=== PATIENT | female | born 2000 | race Caucasian/White ===

== ENCOUNTER 2023-01-04 14:00 | Outpatient (RCR) | payer BC ==
[2022-12-24 17:09] VITALS: BP 115/64; PULSE 79; TEMP 98.3
[2022-12-28 14:23] VITALS: BP 109/72; PULSE 88; TEMP 98.9
[~2023-01-04] VITALS: Ht 175.3 cm; Wt 64.2 kg
[~2023-01-04 14:00] MED LIST: PREDNISONE10 MG PO; PROAIR HFA0.09 MG/AC IH; SINGULAIR 110 MG/TAB PO
[2023-01-04 14:01] VITALS: BP 111/70; PULSE 71; TEMP 98.4
--- NOTE | 2023-01-04 14:19 | NUR ---
PT DISCHARGED AT APPROX 1420. SHE AMBULATES INDEPENDENTLY TO THE MAIN LOBBY TO [employer] HERSELF HOME. HER VS WERE WNL UPON DISCHARGE AND SHE WAS FREE FROM CONCERNS AND COMPLAINTS AT TIME OF DISCHARGE. THIS WAS HER FINAL RABIES VACCINATION INJECTION.
== END 2023-01-04 14:20 | disposition home or self-care (01) ==
LOC: EUO 14:00
DX: Z23 Encounter for immunization (principal); W55.81XA Bitten by other mammals, initial encounter